=== PATIENT | female | born 1970 | race Caucasian/White ===

== ENCOUNTER 2017-01-04 15:55 | Emergency (ER) | payer OTHER ==
--- NOTE | ~2017-01-04 | CR72 ---
[facility] A Service of [facility] RADIOLOGY TEXT RESULTS PATIENT: JOHNATHON HILL LOCATION: [place] : [birth year] UNIT #: [id number] AGE: [address]: Grace Bennett MD SEX: F ORDER DR: [id number] [facility] [address] [place], [place] [address] [id number] E MR#: [id number] Acc #: [id number] NAME: JOHNATHON HILL : 1970 SEX: F STUDY DATE/TIME: 01/04/2017 15:23 UNIT: [facility] ROOM: STUDY DESCRIPTION: CR Chest Single View Portable Attending Physician: Grace Bennett M.D. Ordering Physician: Grace Bennett M.D. Primary Care Physician: No Primary Care Physician MEDICAL IMAGING REPORT This report is preliminary unless electronic signature is present EXAM Portable chest. DATE OF EXAM 01/04/2017, 1523 hours. LOCATION [facility]. HISTORY 46-year-old female, status post intubation. COMPARISON STUDIES 04/16/2015 FINDINGS AP portable chest demonstrates ET tube satisfactorily positioned with the tip approximately 4.5 cm above the ophelia. Mediastinal contours are preserved. Bilateral lungs are expanded and clear. Gaseous distension of the stomach is partially imaged. Anterior cervical fusion lower cervical spine is partially imaged. IMPRESSION Satisfactorily positioned ET tube with the tip 4.5 cm above the ophelia. No acute pulmonary finding. Gaseous distension of the stomach partially imaged with previous anterior fusion lower cervical spine. Dictated by... Brian Ellsworth M.D. THIS IS AN ELECTRONICALLY VERIFIED REPORT Brian Ellsworth M.D. at 01/07/2017 8:03 AM [facility] A Service of [facility] RADIOLOGY TEXT RESULTS PATIENT: JOHNATHON HILL LOCATION: [place] : [birth year] UNIT #: [id number] AGE: [address]: Grace Bennett MD SEX: F ORDER DR: Frida TD: 01/04/2017 21:38 JOB #: [id number] MEDICAL IMAGING REPORT COPY
--- NOTE | ~2017-01-04 | EKG ---
PATIENT: JOHNATHON HILL UNIT #: [id number] Ventricular Rate: 94 BPM Atrial Rate: 94 BPM P-R Interval: 158 ms QRS Duration: 80 ms Q-T Interval: 352 ms QTC Calculation(Bezet): 440 ms P Winn: 63 degrees Calculated R Winn: 53 degrees Calculated T Winn: 59 degrees Diagnosis Line: Normal sinus rhythm Diagnosis Line: Normal ECG Diagnosis Line: When compared with ECG of 16-APR-2015 00:09, Diagnosis Line: Criteria for Septal infarct are no longer Present Diagnosis Line: Confirmed by GABRIELA CUEVAS MD ([id number]) on 01/07/2017 Diagnosis Line: 7:23:03 AM INTERPRETING MD: MASON MEDINA
[2017-01-04 15:12] LABS: ARTERIAL BLD GAS O2 SATURATION 93.6 % (90.0-100.0); ARTERIAL BLOOD GAS CARBOXY HB 5.6 %sat (0.0-9.0); ARTERIAL BLOOD GAS HCO3 20.3 mmol/L; ARTERIAL BLOOD GAS MET HB 0.7 %sat (0.0-2.0); ARTERIAL BLOOD GAS PCO2 37.6 mmHg (35.0-45.0); ARTERIAL BLOOD GAS pH 7.341 (7.350-7.450)
[2017-01-04 15:13] LABS: ARTERIAL BLOOD GAS ART SITE RIGHT RADIAL; ARTERIAL BLOOD GAS DELIVERY VENT; ARTERIAL BLOOD GAS VENT MODE AC; ARTERIAL DRAW? YES
[2017-01-04 15:22] LABS: BASOPHIL% 0.2 % (0-2.5); EOSINOPHIL# 0.2 X10e3 (0-0.7); EOSINOPHIL% 2.9 % (0.0-7.0); HEMATOCRIT 40.3 % (35.0-45.0); HEMOGLOBIN 13.2 gm/dL (12.0-16.0); LYMPHOCYTE# 3.3 X10e3 (1.0-3.5); LYMPHOCYTE% 42.5 % (17.0-45.0); MEAN CELL VOLUME 93.3 FL (83-96); MEAN CORPUSCULAR HEMOGLOBIN 30.5 PG (28-34); MEAN CORPUSCULAR HGB CONC 32.7 g/dL (30-36); MEAN PLATELET VOLUME 8.7 FL (6.5-11.5); MONOCYTE# 0.5 X10e3 (0-1.0); MONOCYTE% 5.8 % (3.0-12.0); NEUTROPHIL# 3.8 X10e3 (1.5-7.1); NEUTROPHIL% 48.6 % (40-75); PLATELET COUNT 240 X10e3 (140-420); RED BLOOD COUNT 4.32 X10e (3.90-5.30); RED CELL DISTRIBUTION WIDTH 13.5 % (11.0-15.5); WHITE BLOOD COUNT 7.8 X10e3 (4.0-10.5)
[2017-01-04 15:25] LABS: DIFF IND NO
[2017-01-04 15:38] LABS: PARTIAL THROMBOPLASTIN TIME 29.2 SECONDS (23.5-31.3); PROTHROMBIN TIME (PATIENT) 10.2 SECONDS (9.6-11.5)
[2017-01-04 15:40] LABS: URINE SOURCE CLEAN CATCH
[2017-01-04 15:51] LABS: URINE APPEARANCE CLEAR; URINE BILIRUBIN NEG (NEG); URINE BLOOD 1+ (NEG); URINE COLOR YELLOW; URINE GLUCOSE NEG (NEG); URINE KETONE NEG (NEG); URINE LEUKOCYTE ESTERASE NEG (NEG); URINE NITRATE NEG (NEG); URINE PH 5.5 (5-8); URINE PROTEIN NEG (NEG); URINE SPECIFIC GRAVITY 1.007 (1.003-1.035); URINE UROBILINOGEN 0.2 MG/DL (NEG)
[2017-01-04 15:55] LABS: URINE BACTERIA AUWI NEG (NEGATIVE); URINE SQUAMOUS EPITHELIAL CELL NONE SEEN /[HPF]; UWBCS1 AUWI 0-2 (0-5)
[~2017-01-04 15:55] MED LIST: ADVAIR 1001 DISK W/D PO; AMITRYPTYLINE PO; CIPRO PO; DIAZEPAM PO; FIORICET 50-321 EACH PO; FLEXERIL10 MG PO; IMITREX50 MG; LIDOCREAM5 GM TP; LORTAB 5/500 TA1 TA1 PO; LORTAB 7.5-5001 TAB PO; MACROBID100 MG PO; NAPROSYN500 MG PO; NEURONTIN600 MG PO; PHENERGAN DM1 ML PO; PYRIDIUM PO; SEROQUEL PO; SOMA PO; ULTRAM PO; VALIUM2 MG; VICODIN 5/1 TAB 5/50 PO; ZITHROMAX1 G/PKT PO
[2017-01-04 16:05] LABS: ALBUMIN SERUM 4.1 g/dL (3.5-5.0); ALKALINE PHOSPHATASE 101 U/L (32-92); ALT (SGPT) 17 U/L (10-40); AST (SGOT) 28 U/L (10-42); BILIRUBIN, DIRECT 0.1 mg/dL (0.0-0.2); BILIRUBIN,INDIRECT 0.2 mg/dL (0.0-0.9); BILIRUBIN,TOTAL 0.3 mg/dL (0.2-2.0); BLOOD UREA NITROGEN 6 mg/dL (9-23); BUN/CREATININE RATIO 6.66; CARBON DIOXIDE 21 mmol/L (22-31); CHLORIDE 107 mmol/L (100-111); CPK (CREATINE PHOSPHOKINASE) 105 IU/L (26-140); CREATININE SERUM 0.9 mg/dL (0.6-1.4); GLOM FILT RATE Estimated ABOVE60 mL/min (>60); GLUCOSE FASTING 197 mg/dL (70-110); POTASSIUM 3.7 mmol/L (3.5-5.1); PROTEIN TOTAL SERUM 7.6 g/dL (6.0-8.3); SODIUM 136 mmol/L (135-145)
[2017-01-04 16:06] LABS: ALCOHOL BLOOD <5 mg/dL (0); CULTURE INDICATED? NO
[2017-01-04 16:16] LABS: AMPHETAMINE NEG (NEG); BARBITURATES NEG (NEG); BENZODIAZEPINES POS (NEG); COCAINE NEG (NEG); MARIJUANA NEG (NEG); OPIATES POS (NEG); TRICYCLIC ANTIDEPRESSANTS NEG (NEG); U METHADONE NEG (NEG)
[2017-01-04 16:25] LABS: POC - CKMB 1.6 ng/mL (0.0-7.9); POC - TROPONIN <0.05 ng/mL (<=0.05)
[2017-01-04 17:29] LABS: OSMOLALITY,SERUM 295 mOsmo/kg (280-300)
== END 2017-01-04 18:25 | disposition home or self-care (01) ==
LOC: CED 15:55
PROVIDERS: Emergency Medicine
DX: T40.1X1A Poisoning by heroin, accidental (unintentional), initial encounter (principal); T42.4X1A Poisoning by benzodiazepines, accidental (unintentional), initial encounter; Y92.9 Unspecified place or not applicable; J96.00 Acute respiratory failure, unspecified whether with hypoxia or hypercapnia; F19.10 Other psychoactive substance abuse, uncomplicated; F17.200 Nicotine dependence, unspecified, uncomplicated; Z90.49 Acquired absence of other specified parts of digestive tract; Z98.890 Other specified postprocedural states
CPT/HCPCS: 36415; 36600; 51702; 71010; 80048; 80076; 80307; 81003; 82550; 82553; 82803; 83605; 83930; 84484; 84703; 85025; 85610; 85730; 93005; 94002; 96361; 96374; 96375; 99284; G0480